=== PATIENT | female | born 1975 ===

== ENCOUNTER 2018-09-04 11:33 | Inpatient (IN) ==
[2018-09-04 12:20] LABS: URINE SOURCE CLEAN CATCH
[2018-09-04 12:30] LABS: BILIRUBIN URINE NEGATIVE (NEGATIVE); BLOOD URINE NEGATIVE (NEGATIVE); COLOR YELLOW; GLUCOSE URINE NEGATIVE (NEGATIVE); KETONE URINE 40 mg/dL (NEGATIVE); LEUKOCYTES URINE NEGATIVE (NEGATIVE); NITRITE URINE NEGATIVE (NEGATIVE); PH URINE 6.5; PROTEIN URINE TRACE mg/dL (NEGATIVE); SP GRAVITY URINE 1.012; TURBIDITY URINE CLEAR (CLEAR); UROBILINOGEN URINE NORMAL (NORMAL)
[2018-09-04 12:31] LABS: UR EPITHELIAL CELLS <10 /HPF (<10); URINE BACTERIA 2+ /HPF; URINE WBC <10 /HPF (<10)
[2018-09-04 13:19] LABS: BASO# 0.02 X1000 (0.0-0.2); BASO% 0.2 % (0.0-0.8); EOS# 0.17 X1000 (0.0-0.7); EOS% 1.5 % (0.0-10.0); HEMATOCRIT 47.6 % (37.0-47.0); HEMOGLOBIN 16.4 g/dL (12.0-16.0); IMM GRAN# 0.08 X1000 (0.0-0.04); IMM GRAN% 0.7 % (0.0-0.5); LYMPH# 2.46 X1000 (1.2-3.4); LYMPH% 22.4 % (20.5-51.1); MCH 29.3 PG (27-31); MCHC 34.5 g/dL (33-37); MCV 85.2 FL (81-99); MONO# 0.93 X1000 (0.11-0.59); MONO% 8.5 % (1.7-9.3); MPV 10.2 FL (7.4-10.4); NEUT# 7.31 X1000 (1.4-6.5); NEUT% 66.7 % (42.2-75.2); PLT 391 X1000 (130-400); RBC 5.59 XMIL (4.2-5.4); RDW 12.9 % (11.5-14.5); WBC 10.97 X1000 (4.8-10.8)
[2018-09-04 13:24] LABS: INR 0.87; PROTIME 12.6 Seconds (11.0-16.0)
--- NOTE | 2018-09-04 13:32 | Diag Imaging Result Doc PS360 ---
FLAT/UPRIGHT ABD/1 VIEW CHEST - 09/04/2018 INDICATION: chest and abd pain TECHNIQUE: COMPARISON: None FINDINGS: The chest is clear. There is a nonobstructive bowel gas pattern. No free air or abnormal calcifications. IMPRESSION: Negative exam. Electronically signed by Spencer Rivera 09/04/2018 1:30 PM
[2018-09-04 13:39] LABS: AGAP 15; ALB/GLOB RATIO 1.2; ALKALINE PHOSPHATASE 63 U/L (32-104); AMYLASE 22 U/L (20-200); BUN 6 mg/dL (8-22); CALCIUM 9.3 mg/dL (8.8-10.2); CHLORIDE 96 mmol/L (98-107); COSMO 269; CREATININE 0.7 mg/dL (0.5-0.9); GLUCOSE 87 mg/dL (70-104); GOT 14 U/L (10-30); GPT 9 U/L (10-36); LIPASE 15 U/L (13-60); MAGNESIUM 1.8 mg/dL (1.5-2.7); POTASSIUM 3.1 mmol/L (3.5-5.1); SODIUM 136 mmol/L (136-145); TCO2 25 mmol/L (25-35); TOTAL BILIRUBIN 0.22 mg/dL (0.20-1.00); TOTAL PROTEIN 7.4 g/dL (6.3-8.3)
[2018-09-04 13:50] LABS: FREE T4 1.76 ng/dL (0.93-1.70)
[2018-09-04 14:05] LABS: HEMOGLOBIN A1C 5.2 % (4.8-6.0)
[2018-09-04] MEDS: NS 1,000 ML IV SCH (15:48)
[2018-09-04] MEDS: DILAUDID IV PRN ×2 (15:48→22:52)
[2018-09-04] MEDS: PROTONIX IV SCH (15:49)
[2018-09-04] MEDS: POTASSIUM CHLORIDE 20 MEQ/SWI 20 MEQ/100 ML IVPB IV SCH ×2 (15:49→22:51)
--- NOTE | 2018-09-04 16:31 | Diag Imaging Result Doc PS360 ---
EXAM: CT ABD/PELVIS W/PO AND IV CON INDICATION: abd pain, r/o IBD TECHNIQUE: This exam was performed using automated exposure control, adjustment of mA or kV according to patient size, and/or use of iterative reconstruction technique. COMPARISON: None. FINDINGS: There is questionable very mild diffuse hepatic steatosis. The gallbladder, spleen, pancreas, adrenal glands, kidneys, and urinary bladder are essentially unremarkable. There is a 1.6 cm left ovarian cyst. The uterus is anteroverted. The reproductive tract is grossly unremarkable as imaged, otherwise. There is no evidence of appendicitis. There is diffuse colonic wall thickening indicating colitis. The diffuse thickening may represent an infectious colitis. However, inflammatory colitis cannot be excluded. Note that the terminal ileum may also be mildly thickened. The remainder of the small bowel is grossly unremarkable. There is no evidence of bowel obstruction. The remainder of the GI tract is grossly unremarkable. No free abdominal gas or free fluid is identified. IMPRESSION: 1.Diffuse colonic wall thickening consistent with nonspecific colitis as detailed above. 2.Questionable mild wall thickening involving the distal ileum. Electronically signed by Dean Miller 09/04/2018 4:29 PM
--- NOTE | 2018-09-04 16:41 | HISTORY AND PHYSICAL ---
PRIMARY CARE PROVIDER: Dr. Samm Michaud. CHIEF COMPLAINT: Abdominal pain and diarrhea. HISTORY OF PRESENT ILLNESS: Mrs. Ross is a 43-year-old female with a history of redundant colon, per her report, gastroesophageal reflux disease, mild hiatal hernia, and interstitial cystitis, who presents directly from Dr. Samm Michaud's office for multiple weeks of abdominal pain. Her symptoms initially started as left lower quadrant pain that was intermittent in nature. She was prescribed a bowel regimen for improved transit, however her symptoms changed from constipation to diarrhea over the past few weeks. She now endorses a right upper quadrant and left lower quadrant pain, having as much as 10 to 15 bowel movements a day with possibly some mild bleeding. Over the past few days she has also had some fevers and chills. She states that in [place], where she is from, she has been worked up before, had multiple colonoscopies and EGDs, none of which showed anything acute, per her report. Dr. Michaud felt she needed an inpatient Gastroenterology workup, so he directly admitted her to our service. We have ordered labs, which show mildly elevated white count, however apparently she was recently put on steroids and antibiotics. She does have some hemoconcentration, but interestingly her sed rate is 125 and a CRP is 40. She does report she has a younger sister with autoimmune disorders, but does not recall anybody else in her family that she knows of. We are currently awaiting a CT of the abdomen and pelvis. She is hemodynamically stable at this time and will admit her for further treatment and evaluation. PAST MEDICAL HISTORY: 1. Redundant colon. 2. Interstitial cystitis. 3. Chronic venous insufficiency of the lower extremities. 4. Gastroesophageal reflux disease. SURGICAL HISTORY: She has had her tonsils taken out. SOCIAL HISTORY: No history of tobacco or drug use. She reports seldom alcohol use. She is . is at the bedside. FAMILY HISTORY: Younger sister with autoimmune disorders, she said diabetes mellitus and alopecia. REVIEW OF SYSTEMS: A 14 point review of systems was obtained and found to be negative with the exception of the HPI. HOME MEDICATIONS: [place] as needed for pain, Proctozone rectally b.i.d., levocetirizine 5 mg daily, magnesium 100 mg p.o. daily, Toprol XL 25 mg daily, Myrbetriq 50 mg daily , nitroglycerin 0.4 mg sublingual as directed, prednisone 10 mg as directed, Carafate 1 gram p.o. b.i.d., triamterene/hydrochlorothiazide one daily, zinc 100 mg p.o. daily. ALLERGIES: Codeine, penicillin, and sulfa. PHYSICAL EXAMINATION: VITAL SIGNS: Blood pressure is 127/100, heart rate 85, respiratory rate 16, and O2 saturation 100% on room air. Temperature is 98.4. GENERAL: This is a well developed, well nourished, female lying in a hospital bed in no acute distress. NEUROLOGIC: Awake, alert, and oriented. Follows commands. No focal deficits. HEENT: The head is atraumatic and normocephalic. Pupils are equal, round, and reactive to light. Oral mucosa is dry. NECK: Trachea is midline. There is no JVD. CHEST: Clear to auscultation bilaterally. CV: Regular rate and rhythm. S1, S2 is noted. There are no murmurs. GI: Right upper quadrant and left lower quadrant tenderness to palpation. No abdominal masses noted. There is no distention or rigidity. Bowel sounds are hypoactive. EXTREMITIES: Without edema. Pulses 2+ bilaterally. DIAGNOSTIC DATA: Abdomen and chest x-ray with nonobstructive bowel gas pattern. Labs: WBC 10.97, hemoglobin 16.4, hematocrit 47.6, platelet count 391,000. INR 0.87. Sodium 136, potassium 3.1, chloride 96, CO2 25, anion gap 15, BUN 6, creatinine 0.7, glucose 87, AST 14, ALT 9. CRP 40. ESR 125. Amylase 22 and lipase 15. TSH 2. UA does show 2+ bacteria with 10-20 RBCs. ASSESSMENT AND PLAN: 1. Abdominal pain with diffuse diarrhea: Concern for inflammatory bowel disease with the elevated inflammatory markers. We will check stool studies and a CT of the abdomen and pelvis. Continue intravenous fluid hydration and consult Gastroenterology. 2. Interstitial cystitis: Will order microbiology of the urine but she is not complaining of any worsening symptoms. She does have some dysuria, but this is chronic, per her report. 3. Hypokalemia: Will replace and recheck in the morning. 4. Gastroesophageal reflux: Will add intravenous Protonix. Gastroenterology has been consulted for that as well. 5. Deep venous thrombosis prophylaxis with sequential compression devices. Further recommendations to follow. Dictated by RENETTA Feldman for Gina Manrique MD cc: RENETTA Feldman MD Kirk L. Jackson, MD I performed a face to face encounter on this patient. I reviewed all imaging and labs on the patient. I agree with the H&P as dictated. The patient was sent as a direct admission due to colitis. On exam, the patient has diffuse abdominal pain. She also has poor skin turgor. The patient will be admitted with a diagnosis of colitis and dehydration. Will start IV antibiotics and IV antibiotics. Will consult GI for further assistance with management. JAM
[2018-09-04] MEDS: LEVAQUIN 750 MG/D5W 750 MG/150 ML IVPB IV SCH (20:38)
[2018-09-04] MEDS: CARAFATE LIQUID PO SCH (20:43)
[2018-09-04] MEDS: FLAGYL 250 MG/NS 250 MG/50 ML IVPB IV SCH (21:45)
[2018-09-04] MEDS: ZOFRAN IV PRN (22:52)
[2018-09-05] MEDS: FLAGYL 250 MG/NS 250 MG/50 ML IVPB IV SCH ×4 (03:32→20:01)
[2018-09-05] MEDS: ZOFRAN IV PRN ×3 (03:54→12:12)
[2018-09-05] MEDS: DILAUDID IV PRN ×5 (03:54→21:15)
--- NOTE | 2018-09-05 05:05 | CONSULTATION ---
DATE OF CONSULTATION: 09/04/2018 REFERRING PHYSICIAN: Dr. Gina Manrique M.D. INDICATION FOR CONSULTATION: 1. Diarrhea. 2. Abdominal pain. HISTORY OF PRESENT ILLNESS: The patient is a 43-year-old white female with a longstanding history of chronic constipation secondary to a redundant colon, GERD, hiatal hernia and interstitial cystitis. The patient states that she has had chronic constipation for years. However, when she was placed on a laxative for severe constipation, she developed unrelenting diarrhea. She has had multiple bowel movements sometimes up to ten to fifteen bowel movements per day with nocturnal awakening. There has been mild bleeding when she wipes post defecation but no gross blood in the stool. Because of her refractory diarrhea that has not responded to conservative management, she was sent to [facility] for admission per her primary care physician, Dr. Samm Michaud. Her labs are remarkable for hypokalemia, hemoconcentration, elevated sed rate to 125 and a CPR of 40. She has a sister who has autoimmune disorders which is of concern to her. At the time of admission, she was sent for a CT scan that is remarkable for diffuse colonic thickening consistent with a nonspecific acute colitis as well as thickening of the distal ileum. The differential includes acute infectious enterocolitis versus inflammatory bowel disease. Because of these findings and her persistent symptoms, we are asked to participate in her care. PAST MEDICAL HISTORY: 1. Redundant colon. 2. Chronic constipation. 3. Interstitial cystitis. 4. Chronic venous insufficiency of the lower extremities. 5. GERD. PAST SURGICAL HISTORY: Tonsillectomy. SOCIAL HISTORY: Negative for tobacco and recreational drug use. She reports social alcohol use. She is and her is at bedside. FAMILY HISTORY: Remarkable in that her sister has autoimmune disorders. They have also a family history of diabetes and alopecia. There is no history of colon cancer. MEDICATION ALLERGIES: 1. Codeine. 2. Penicillin G. 3. Sulfa. 4. Trimethoprim. HOME MEDICATIONS: 1. [place] 10. 2. Hydrocortisone HC one per rectum b.i.d. 3. Xyzal. 4. Magnesium. 5. Toprol. 6. Myrbetriq. 7. Nitroglycerin. 8. Prednisone. 9. Carafate. 10.Triamterene hydrochlorothiazide. 11.Zinc. PHYSICAL EXAM: Her blood pressure is 127/100, pulse of 85, respirations 16, temperature of 98.4. In general, she is in no acute distress. HEENT: Negative for jaundice. Her oropharyngeal mucosal membranes are dry. Pulmonary: On pulmonary exam, lungs are clear to auscultation with normal expiratory effort. Cardiovascular: Exam reveals regular rate and rhythm although she has intermittently had an intermittent tachycardia. Abdomen: Exam reveals normoactive bowel sounds. The abdomen is diffusely tender but the tenderness is greatest in the left lower quadrant and in the right lower quadrant. There is no rebound or guarding. Extremities: Bilaterally are negative for cyanosis, clubbing, or edema. Her pain is approximately 6/10 on a 0 to 10 pain scale. OBJECTIVE DATA: Reveals a hemoglobin of 16.4 with hematocrit of 47.6 and a white count of 10.97. Her platelets are 391,000. PT is 12.6 with an INR of 0.87. Sodium 136, potassium 3.1, chloride 96, CO2 25, BUN 6, creatinine 0.7 with a glucose of 87. Hemoglobin A1c is 5.2, calcium 9.3, magnesium 1.8, total bilirubin 0.22, AST 14, ALT 9, alkaline phosphatase 63, total protein 7.4, albumin 4.0. Her CRP is 40.02. Her amylase is 22, lipase 15, TSH 2.0. She has 10 to 20 red blood cells in her urine with no evidence of leukocytosis. Her urine is negative. IMPRESSION: 1. Enterocolitis as noted above. 2. Abdominal pain. RECOMMENDATION: 1. The patient has severe acute colitis. I will begin Levaquin 750 mg q. 24 hours and Flagyl 250 mg q. 6 hours pending further evaluation and test results. 2. I agree with stool studies that has been sent and are pending. 3. Because her CT scan is suggestive of possible inflammatory bowel disease, I will send stool for lactoferrin and calprotectin. 4. Please check inflammatory bowel disease panel. 5. Will plan an outpatient EGD and colonoscopy in September. 6. Please begin a clear liquid diet and advance as tolerated. 7. Additional recommendations to follow based on clinical course. cc: MD Samm Rojas MD Katherine Takundwa, MD
[2018-09-05 07:00] LABS: BASO# 0.02 X1000 (0.0-0.2); BASO% 0.3 % (0.0-0.8); EOS# 0.26 X1000 (0.0-0.7); EOS% 4.1 % (0.0-10.0); HEMATOCRIT 39.3 % (37.0-47.0); HEMOGLOBIN 13.5 g/dL (12.0-16.0); IMM GRAN# 0.06 X1000 (0.0-0.04); IMM GRAN% 0.9 % (0.0-0.5); LYMPH# 2.02 X1000 (1.2-3.4); LYMPH% 31.9 % (20.5-51.1); MCH 29.6 PG (27-31); MCHC 34.4 g/dL (33-37); MCV 86.2 FL (81-99); MONO# 0.69 X1000 (0.11-0.59); MONO% 10.9 % (1.7-9.3); NEUT# 3.29 X1000 (1.4-6.5); NEUT% 51.9 % (42.2-75.2); PLT 351 X1000 (130-400); RBC 4.56 XMIL (4.2-5.4); WBC 6.34 X1000 (4.8-10.8)
[2018-09-05 07:17] LABS: AGAP 13; BUN 5 mg/dL (8-22); CALCIUM 8.5 mg/dL (8.8-10.2); CHLORIDE 99 mmol/L (98-107); COSMO 266; CREATININE 0.6 mg/dL (0.5-0.9); GLUCOSE 77 mg/dL (70-104); POTASSIUM 3.5 mmol/L (3.5-5.1); SODIUM 135 mmol/L (136-145); TCO2 23 mmol/L (25-35)
[2018-09-05] MEDS: NS 1,000 ML IV SCH ×3 (08:16→19:49)
[2018-09-05] MEDS: TOPROL XL PO SCH (10:07)
[2018-09-05] MEDS: MYRBETRIQ E.R. PO SCH (10:08)
[2018-09-05] MEDS: CARAFATE LIQUID PO SCH ×2 (10:09→20:00)
[2018-09-05] MEDS: VANCOMYCIN ORAL SOLN PO SCH ×3 (10:09→21:20)
[2018-09-05] MEDS ORDERED: SODIUM CHLORIDE 0.9% INJ PRN (12:22)
[2018-09-05] MEDS: SODIUM CHLORIDE 0.9% INJ SCH (14:51)
[2018-09-05] MEDS: PROTONIX IV SCH (14:51)
--- NOTE | 2018-09-05 15:52 | PROGRESS NOTE ---
DATE: 09/05/2018 SUBJECTIVE: The patient complains of nausea and abdominal pain. She was unable to eat her breakfast or lunch. OBJECTIVE: Vital Signs: Temperature 97.9 degrees, blood pressure 114/66, heart rate 75, respirations 21, O2 saturation 100% on room air. General: This is a middle-aged female sitting in bed in no acute distress. Heart: S1, S2 normal. Regular rate and rhythm. Lungs: No wheezing, no rales, no rhonchi. Abdomen: Positive bowel sounds. Soft, nontender, nondistended. Extremities: No edema, no cyanosis. Neurologic: The patient is alert and oriented x3. LABS: Sodium 135, potassium 3.5, chloride 99, CO2 23. BUN 5, creatinine 0.6, calcium 8.5. White blood cell count 6.3, hemoglobin 13, hematocrit 39, platelets 351. ASSESSMENT AND PLAN: 1. Clostridium difficile colitis. We will start the patient on oral vancomycin. 2. Nausea with vomiting. Continue with symptomatic treatment. 3. Gastroesophageal reflux disease. Continue on intravenous Protonix. 4. Deep vein thrombosis prophylaxis. Will start the patient on Lovenox. cc: MD Samm Norris MD
[2018-09-05] MEDS: PHENERGAN IV PRN (16:03)
--- NOTE | 2018-09-05 17:41 | Diag Imaging Result Doc PS360 ---
EXAM: KUB ABDOMEN - 09/05/2018 HISTORY: C. diff, ileocolitis, N/V TECHNIQUE: Portable AP spine abdomen COMPARISON: 09/04/2018 FINDINGS: The bowel gas pattern appears nonspecific. There is residual oral contrast from recent CT scan in the colon and rectum. IMPRESSION: Nonspecific bowel gas pattern. Electronically signed by Akash Lambert 09/05/2018 5:39 PM
[2018-09-05] MEDS: DELZICOL PO SCH (17:59)
[2018-09-05] MEDS: LEVAQUIN 750 MG/D5W 750 MG/150 ML IVPB IV SCH (18:00)
[2018-09-06] MEDS: FLAGYL 250 MG/NS 250 MG/50 ML IVPB IV SCH ×4 (02:12→21:15)
[2018-09-06] MEDS: DILAUDID IV PRN ×3 (02:15→16:52)
[2018-09-06] MEDS: PHENERGAN IV PRN ×4 (02:26→21:15)
[2018-09-06] MEDS: NS 1,000 ML IV SCH ×3 (07:01→16:53)
[2018-09-06] MEDS: VANCOMYCIN ORAL SOLN PO SCH ×4 (07:02→21:15)
[2018-09-06 07:11] LABS: BASO# 0.01 X1000 (0.0-0.2); BASO% 0.1 % (0.0-0.8); EOS# 0.37 X1000 (0.0-0.7); EOS% 4.4 % (0.0-10.0); HEMATOCRIT 37.4 % (37.0-47.0); HEMOGLOBIN 12.7 g/dL (12.0-16.0); IMM GRAN% 1.2 % (0.0-0.5); LYMPH% 13.1 % (20.5-51.1); MCH 29.9 PG (27-31); MONO# 0.65 X1000 (0.11-0.59); MONO% 7.8 % (1.7-9.3); MPV 9.7 FL (7.4-10.4); NEUT# 6.15 X1000 (1.4-6.5); NEUT% 73.4 % (42.2-75.2); PLT 326 X1000 (130-400); RBC 4.25 XMIL (4.2-5.4); RDW 13.3 % (11.5-14.5); WBC 8.38 X1000 (4.8-10.8)
[2018-09-06 07:46] LABS: AGAP 13; BUN 3 mg/dL (8-22); CALCIUM 8.1 mg/dL (8.8-10.2); CHLORIDE 105 mmol/L (98-107); COSMO 273; CREATININE 0.5 mg/dL (0.5-0.9); GLUCOSE 75 mg/dL (70-104); POTASSIUM 3.6 mmol/L (3.5-5.1); SODIUM 139 mmol/L (136-145); TCO2 21 mmol/L (25-35)
[2018-09-06] MEDS: TOPROL XL PO SCH (08:33)
[2018-09-06] MEDS: MYRBETRIQ E.R. PO SCH (08:33)
[2018-09-06] MEDS: DELZICOL PO SCH ×3 (08:33→16:47)
[2018-09-06] MEDS: CARAFATE LIQUID PO SCH ×2 (08:33→21:15)
[2018-09-06] MEDS: LOVENOX SUBQ SCH (08:35)
[2018-09-06] MEDS: PROTONIX IV SCH (15:07)
[2018-09-06] MEDS: SODIUM CHLORIDE 0.9% INJ SCH (15:07)
[2018-09-06] MEDS: LEVAQUIN 750 MG/D5W 750 MG/150 ML IVPB IV SCH (17:02)
--- NOTE | 2018-09-06 18:50 | PROGRESS NOTE ---
DATE: 09/06/2018 SUBJECTIVE: The patient is resting comfortably in bed, no acute events noted overnight. She does complain of persistent nausea and reports that her abdominal pain is a little bit better today. OBJECTIVE: Vital Signs: Temperature 98.2 degrees, blood pressure 99/59, heart rate 90, respirations 20, O2 saturation 98% on room air. General: This is a middle aged female sitting up in bed in no acute distress. Heart: S1, S2 normal. Lungs: Equal air entry bilaterally. No crackles, no rales. Abdomen: Positive bowel sounds. Soft, nontender, nondistended. Extremities: No edema, no cyanosis. Neuro: The patient is alert and oriented x3. LABS: Reviewed. ASSESSMENT AND PLAN: 1. Clostridium difficile colitis. Continue on oral vancomycin. 2. Nausea, vomiting. Continue symptomatic treatment. GI is following. 3. Gastroesophageal reflux disease. Continue on IV Protonix. 4. Deep vein thrombosis prophylaxis. Continue on Lovenox. cc: MD Samm Norris MD
[2018-09-06 19:33] LABS: URINE SOURCE CLEAN CATCH
[2018-09-06 19:39] LABS: BILIRUBIN URINE NEGATIVE (NEGATIVE); BLOOD URINE NEGATIVE (NEGATIVE); COLOR YELLOW; GLUCOSE URINE NEGATIVE (NEGATIVE); KETONE URINE 40 mg/dL (NEGATIVE); LEUKOCYTES URINE TRACE (NEGATIVE); NITRITE URINE NEGATIVE (NEGATIVE); PROTEIN URINE TRACE mg/dL (NEGATIVE); SP GRAVITY URINE 1.015; TURBIDITY URINE CLEAR (CLEAR); UR EPITHELIAL CELLS <10 /HPF (<10); URINE BACTERIA 1+ /HPF; URINE RBC <10 /HPF (<10); URINE WBC <10 /HPF (<10); UROBILINOGEN URINE NORMAL (NORMAL)
[2018-09-06] MEDS: MORPHINE IV PRN (22:14)
[2018-09-07] MEDS: FLAGYL 250 MG/NS 250 MG/50 ML IVPB IV SCH ×4 (03:37→20:31)
[2018-09-07] MEDS: VANCOMYCIN ORAL SOLN PO SCH ×4 (03:38→22:01)
[2018-09-07] MEDS: NS 1,000 ML IV SCH ×2 (05:37→16:49)
[2018-09-07] MEDS: MORPHINE IV PRN ×3 (05:42→22:06)
[2018-09-07 06:46] LABS: BASO# 0.02 X1000 (0.0-0.2); BASO% 0.2 % (0.0-0.8); EOS# 0.34 X1000 (0.0-0.7); HEMATOCRIT 35.3 % (37.0-47.0); HEMOGLOBIN 12.1 g/dL (12.0-16.0); IMM GRAN# 0.08 X1000 (0.0-0.04); IMM GRAN% 0.9 % (0.0-0.5); LYMPH# 1.14 X1000 (1.2-3.4); LYMPH% 13.3 % (20.5-51.1); MCH 29.8 PG (27-31); MCHC 34.3 g/dL (33-37); MCV 86.9 FL (81-99); MONO# 0.62 X1000 (0.11-0.59); MONO% 7.3 % (1.7-9.3); MPV 9.7 FL (7.4-10.4); NEUT# 6.35 X1000 (1.4-6.5); NEUT% 74.3 % (42.2-75.2); PLT 331 X1000 (130-400); RBC 4.06 XMIL (4.2-5.4); RDW 13.4 % (11.5-14.5); WBC 8.55 X1000 (4.8-10.8)
[2018-09-07 07:18] LABS: AGAP 9; BUN 1 mg/dL (8-22); CALCIUM 7.9 mg/dL (8.8-10.2); CHLORIDE 103 mmol/L (98-107); COSMO 269; CREATININE 0.5 mg/dL (0.5-0.9); GLUCOSE 83 mg/dL (70-104); POTASSIUM 3.3 mmol/L (3.5-5.1); SODIUM 137 mmol/L (136-145); TCO2 25 mmol/L (25-35)
[2018-09-07] MEDS ORDERED: KLOR-CON PO ONE (09:00)
[2018-09-07] MEDS: MYRBETRIQ E.R. PO SCH (10:13)
[2018-09-07] MEDS: CARAFATE LIQUID PO SCH ×3 (10:13→20:30)
[2018-09-07] MEDS: DELZICOL PO SCH ×3 (10:14→16:50)
[2018-09-07] MEDS: TOPROL XL PO SCH (10:14)
[2018-09-07] MEDS: LOVENOX SUBQ SCH (10:15)
[2018-09-07] MEDS: ULTRAM PO PRN ×2 (10:53→17:20)
--- NOTE | 2018-09-07 12:40 | PROGRESS NOTE ---
DATE: 09/07/2018 SUBJECTIVE: The patient states that she is feeling a lot better today. She says that her nausea has subsided, as well as her abdominal pain. She wants to try to advance her diet today. OBJECTIVE: Vital Signs: Temperature 97.1 degrees, blood pressure 112/66, heart rate 82, respirations 20, O2 saturation is 100% on room air. General: This is a middle-aged female, lying in bed in no acute distress. Heart: S1, S2 normal. Regular rate and rhythm. Lungs: Clear to auscultation bilaterally. Abdomen: Positive bowel sounds. Soft, nontender, nondistended. Extremities: No edema, no cyanosis. Neurologic: The patient is alert and oriented x3. LABS: Reviewed. ASSESSMENT AND PLAN: 1. Clostridium difficile colitis. Continue on oral vancomycin. 2. Nausea and vomiting. Improved. Will advance the patient to a full liquid diet. 3. Gastroesophageal reflux disease. Continue on intravenous Protonix. 4. Deep vein thrombosis prophylaxis. Continue on Lovenox. cc: MD Samm Norris MD
[2018-09-07] MEDS: CULTURELLE PO SCH ×2 (13:52→20:30)
[2018-09-07] MEDS: PROTONIX IV SCH ×2 (15:19→17:22)
[2018-09-07] MEDS: ZOFRAN IV PRN ×2 (15:20→20:30)
--- NOTE | 2018-09-07 17:10 | PROGRESS NOTE ---
DATE: 09/07/2018 SUBJECTIVE: The patient states that she feels better today. She tolerated a liquid diet at breakfast and lunch. She notes 4 liquid bowel movements over the course of the day. She reports interval resolution of her abdominal pain and states that she feels significantly better. PHYSICAL EXAM: Vital Signs: Her blood pressure is 101/63, pulse 86, respirations 20, temperature of 97.7 degrees. HEENT: Negative. Pulmonary: Lungs are clear to auscultation with normal respiratory effort. Cardiovascular: Reveals regular rate and rhythm with no gallops, murmurs, or rubs. Abdomen: Soft and nontender. Extremities: Negative for cyanosis, clubbing, or edema. OBJECTIVE DATA: Reveals a hemoglobin of 12.1 with hematocrit of 35.3 and a white count of 8.55. She has 331,000 platelets. Sodium is 137, potassium 3.3, chloride 103, CO2 of 25, BUN 1, creatinine 0.5 with a glucose of 83 and calcium of 7.9. Her inflammatory bowel disease is positive for Crohn disease with a positive predictive value of 90%. Her TANISHA is negative. RECOMMENDATION: 1. Her CT scan and IBD panel are consistent with Crohn disease. However, we should confirm the diagnosis. I will schedule the patient for flexible sigmoidoscopy on Sunday. She will need a full EGD and colonoscopy as an outpatient in September. 2. For the C difficile enterocolitis, continue Levaquin and Flagyl. 3. I will add Culturelle 1 p.o. b.i.d. 4. For the nausea with vomiting, continue Protonix and Carafate. However, I will adjust her dose so that they are therapeutic. 5. Continue mesalamine for presumed inflammatory bowel disease. 6. Continue oral vancomycin at this time. 7. Once we are aware of the flexible sigmoidoscopy findings, I will streamline her antibiotic regimen based on our findings. 8. The patient is tolerating a clear liquid diet. I will advance her diet to a GI soft in order to assess how she is able to function on a eating plan that she can continue following hospital discharge. cc: MD Samm Norris MD
[2018-09-07] MEDS: LEVAQUIN 750 MG/D5W 750 MG/150 ML IVPB IV SCH (17:23)
[2018-09-08] MEDS: NS 1,000 ML IV SCH ×2 (03:19→13:57)
[2018-09-08] MEDS: VANCOMYCIN ORAL SOLN PO SCH ×4 (03:20→22:48)
[2018-09-08] MEDS: FLAGYL 250 MG/NS 250 MG/50 ML IVPB IV SCH ×4 (03:20→22:14)
[2018-09-08] MEDS: ULTRAM PO PRN ×4 (03:26→22:14)
[2018-09-08] MEDS: PROTONIX IV SCH ×2 (04:24→16:16)
[2018-09-08 07:22] LABS: BASO# 0.01 X1000 (0.0-0.2); BASO% 0.1 % (0.0-0.8); EOS# 0.37 X1000 (0.0-0.7); EOS% 4.6 % (0.0-10.0); HEMATOCRIT 37.2 % (37.0-47.0); HEMOGLOBIN 12.5 g/dL (12.0-16.0); IMM GRAN# 0.07 X1000 (0.0-0.04); IMM GRAN% 0.9 % (0.0-0.5); LYMPH# 1.81 X1000 (1.2-3.4); LYMPH% 22.4 % (20.5-51.1); MCH 29.4 PG (27-31); MCHC 33.6 g/dL (33-37); MCV 87.5 FL (81-99); MONO% 7.4 % (1.7-9.3); MPV 10.3 FL (7.4-10.4); NEUT# 5.23 X1000 (1.4-6.5); NEUT% 64.6 % (42.2-75.2); PLT 329 X1000 (130-400); RBC 4.25 XMIL (4.2-5.4); RDW 13.8 % (11.5-14.5); WBC 8.09 X1000 (4.8-10.8)
[2018-09-08 07:55] LABS: AGAP 10; ALB/GLOB RATIO 1.3; ALBUMIN 3.2 g/dL (3.5-5.0); ALKALINE PHOSPHATASE 48 U/L (32-104); BUN 1 mg/dL (8-22); CALCIUM 8.5 mg/dL (8.8-10.2); CHLORIDE 105 mmol/L (98-107); COSMO 273; CREATININE 0.6 mg/dL (0.5-0.9); GLUCOSE 91 mg/dL (70-104); GOT 19 U/L (10-30); GPT 14 U/L (10-36); MAGNESIUM 1.4 mg/dL (1.5-2.7); POTASSIUM 3.4 mmol/L (3.5-5.1); SODIUM 139 mmol/L (136-145); TCO2 24 mmol/L (25-35); TOTAL BILIRUBIN 0.27 mg/dL (0.20-1.00); TOTAL PROTEIN 5.6 g/dL (6.3-8.3)
[2018-09-08] MEDS ORDERED: KLOR-CON PO ONE (08:46)
[2018-09-08] MEDS: MYRBETRIQ E.R. PO SCH (09:49)
[2018-09-08] MEDS: CARAFATE LIQUID PO SCH ×4 (09:49→20:47)
[2018-09-08] MEDS: TOPROL XL PO SCH (09:50)
[2018-09-08] MEDS: CULTURELLE PO SCH ×2 (09:50→20:48)
[2018-09-08] MEDS: DELZICOL PO SCH ×3 (09:50→16:17)
[2018-09-08] MEDS: LOVENOX SUBQ SCH (09:50)
[2018-09-08] MEDS: LEVAQUIN 750 MG/D5W 750 MG/150 ML IVPB IV SCH (18:11)
--- NOTE | 2018-09-08 19:52 | PROGRESS NOTE ---
DATE: 09/08/2018 SUBJECTIVE: The patient states that she is feeling a little bit better. However, she has been having diarrhea. OBJECTIVE: Vital Signs: Temperature 98 degrees, blood pressure 111/67, heart rate 66, respirations 20, O2 saturation 98% on room air. General: This is a middle-aged female lying in bed in no acute distress. Heart: S1, S2 normal. Regular rate and rhythm. Lungs: Clear to auscultation bilaterally. Abdomen: Positive bowel sounds. Soft. Diffuse tenderness. Extremities: No edema, no cyanosis. Neurologic: The patient is alert and oriented x3. LABS: Reviewed. ASSESSMENT AND PLAN: 1. Clostridium difficile colitis. Continue on oral vancomycin. 2. Possible Crohn's disease. The patient is scheduled to undergo a sigmoidoscopy tomorrow. 3. Hypokalemia. Will replace the patient's potassium. 4. Hypomagnesemia. Will replace the patient's magnesium. 5. Gastrointestinal prophylaxis. Continue on IV Protonix. 6. Deep vein thrombosis prophylaxis. Continue with SCDs. cc: MD Samm Norris MD
[2018-09-08] MEDS ORDERED: MAGNESIUM SULFATE 2 GM/S.W.I. 2 GM/50 ML IVPB IV ONE (20:00)
--- NOTE | 2018-09-08 21:11 | PROGRESS NOTE ---
DATE: 09/08/2018 SUBJECTIVE: The patient is feeling better. However, she reports increased stool frequency in the last 48 hours. She denies abdominal pain but has some mild nausea. She denies emesis. EXAM: Her blood pressure is 111/67, pulse 66, respirations 20, temperature of 98.0 degrees. Her pain is a 5/10 at the time of the exam. The remainder of the exam was deferred as she was eating her meal. OBJECTIVE DATA: Reveals a hemoglobin of 12.5 with hematocrit of 37.2 and a white count of 8.09. She has 329,000 platelets. Sodium is 139, potassium 3.4, chloride 105, CO2 24, BUN 1, creatinine 0.6 with a glucose of 91. Calcium is 8.5, magnesium 1.4, total bilirubin 0.27, AST 19, ALT 14, alkaline phosphatase 48, CRP 4.60, total protein 5.6 and albumin 3.2. RECOMMENDATION: 1. The patient's stool studies were consistent with C difficile colitis, which is currently being treated. Her inflammatory bowel disease marker suggests Crohn's disease. Her inflammatory markers have improved considerably, but her stool frequency is increased. Therefore, I will plan to perform a flexible sigmoidoscopy in the morning to obtain tissue to confirm the diagnosis. 2. Continue supportive care. 3. I will defer to the primary team for correction of her fluid and electrolytes. cc: MD Samm Rojas MD Katherine Takundwa, MD
[2018-09-09] MEDS: FLAGYL 250 MG/NS 250 MG/50 ML IVPB IV SCH ×4 (04:13→21:29)
[2018-09-09] MEDS: VANCOMYCIN ORAL SOLN PO SCH ×4 (04:15→23:30)
[2018-09-09] MEDS: PROTONIX IV SCH ×2 (04:15→17:20)
[2018-09-09] MEDS: SODIUM CHLORIDE 0.9% INJ SCH (04:15)
[2018-09-09] MEDS: ULTRAM PO PRN ×4 (04:15→23:30)
[2018-09-09] MEDS ORDERED: FLEET ENEMA PR ONE ×2 (04:30→05:30)
[2018-09-09] MEDS: ZOFRAN IV PRN (04:50)
[2018-09-09] MEDS: MORPHINE IV PRN (04:50)
[2018-09-09 07:33] LABS: MAGNESIUM 1.7 mg/dL (1.5-2.7); PHOSPHORUS 2.9 mg/dL (2.7-4.5)
[2018-09-09] MEDS ORDERED: XYLOCAINE-MPF 2% ONE (08:36)
[2018-09-09] MEDS ORDERED: DIPRIVAN 1% ONE ×2 (08:36→08:53)
[2018-09-09 09:02] LABS: HEPATITIS PROFILE ACUTE SEE COMMENTS
--- NOTE | 2018-09-09 09:40 | OPERATIVE NOTE ---
PROCEDURE DATE: 09/09/2018 PRIMARY HOSPITALIST: Daljit Flowers MD. PRIMARY CARE PHYSICIAN: Samm Michaud MD. INDICATION FOR PROCEDURE: 1. Refractory diarrhea. 2. Clostridium difficile. 3. Ileal colitis on CT scan. 4. Inflammatory bowel disease serology consistent with Crohn disease. PROCEDURE PERFORMED: 1. Extended flexible sigmoidoscopy to the hepatic flexure. 2. Flexible sigmoidoscopy with biopsies. CONSENT: Informed consent was obtained from the patient prior to the procedure. The risks, benefits, and alternatives were discussed with the patient and her . MEDICATION: The patient received monitored anesthesia care. PERFORMING PHYSICIAN: Melisa Bullock MD. ASSISTANTS: 1. [facility] 2. Teresa Arango RN. 3. Kobe Harrington CRNA. 4. Marshal Barker MD (Anesthesia). COMPLICATIONS: There were no complications. ESTIMATED BLOOD LOSS: Less than 1 mL. SPECIMEN REMOVED: 1. Random colon biopsy. 2. Rectal biopsy. FINDINGS: After the sedation was achieved, the upper endoscope was inserted to the hepatic flexure. We were able to visualize the ascending colon as well as the transverse, descending, and sigmoid colon. There was diffuse erythema with superficial erosions consistent with acute pancolitis. Multiple random colon biopsies were taken. In the rectum, there was ulceration consistent with acute proctitis. Biopsies were taken from the rectal mucosa. The rectum was otherwise normal. After the exam was complete, the lumen was decompressed, and the scope was removed without incident. IMPRESSION: Pancolitis consistent with Crohn disease. RECOMMENDATION: 1. Await biopsy results. 2. Continue Levaquin and Flagyl for total of 10 days of antibiotic therapy. 3. Continue mesalamine 800 mg 3 times a day. 4. I will add Solu-Medrol 40 mg IV q.12 hours for 24 hours, then 40 mg IV daily. Once the diarrhea is under better control, I would transition to oral prednisone and taper slowly as an outpatient. 5. Continue Protonix and Carafate. She will need a total of 12 weeks of Carafate and then stop. 6. I will schedule an outpatient colonoscopy after her colitis resolves for a full evaluation of her entire colon and terminal ileum. 7. Continue Culturelle probiotics. 8. Will have the patient return to clinic 1 to 2 weeks after hospital discharge. cc: MD Samm Rojas MD Cesar Garcia-Rodriguez, MD Kirk L. Jackson, MD
[2018-09-09] MEDS: CARAFATE LIQUID PO SCH ×4 (10:38→21:29)
[2018-09-09] MEDS: CULTURELLE PO SCH ×2 (10:38→21:29)
[2018-09-09] MEDS: SOLU-MEDROL IV SCH ×2 (10:39→21:29)
[2018-09-09] MEDS: PHENERGAN IV PRN (10:39)
[2018-09-09] MEDS: TOPROL XL PO SCH (10:39)
[2018-09-09] MEDS: DELZICOL PO SCH ×3 (10:40→17:20)
[2018-09-09] MEDS: MYRBETRIQ E.R. PO SCH (11:51)
[2018-09-09] MEDS: NS 1,000 ML IV SCH (13:17)
--- NOTE | 2018-09-09 15:38 | PROGRESS NOTE ---
DATE: 09/09/2018 SUBJECTIVE: The patient reports feeling fine. Reports not feeling nauseated. Of course, not vomiting, and she has had 2 episodes of diarrhea. OBJECTIVE: Vital Signs: Temperature 98.0, heart rate 79, respiratory rate 18, blood pressure 101/59, oxygen saturation 98% on room air. General: This is a 43-year-old female lying in bed, in no acute distress. Cardiovascular: S1, S2 heard. No murmurs, gallops, or rubs. Regular rate and rhythm. Respiratory: Clear bilaterally to auscultation. No work of breathing or using accessory muscles. Abdomen: Soft, nontender to palpation. Bowel sounds present. No organomegaly. Extremities: No clubbing, cyanosis, or edema. Peripheral pulses present in both legs. Neurological: Patient is alert and oriented x3. Moves 4 extremities. LABORATORY DATA: No labs from today except phosphorus 2.9 and magnesium 1.7. ASSESSMENT AND PLAN: 1. Clostridium difficile colitis. Patient is on oral vancomycin. According to her, she had only 2 bowel movement this morning. We are not of course sure that was because of the prep enema that she has received. In any case, she underwent sigmoidoscopy, and the biopsies are still pending. As per GI recommendation, IV steroids has been started. We will continue with those. At this point, the patient is feeling much better than she was feeling before the procedure, so my plan is to check labs tomorrow and check how many episodes of diarrhea she has had. If the diarrhea is gone or almost gone, and labs are okay, I will send her home with a Medrol Dosepak, and also oral vancomycin to complete 14 days of antibiotics. 2. Hypokalemia. Potassium has not been checked today. We will check it tomorrow. 3. Hypomagnesemia, resolved. 4. Gastrointestinal prophylaxis. We will continue with IV Protonix. 5. Deep vein thrombosis prophylaxis. We will continue with sequential compression devices. cc: MD Samm Corbett MD
[2018-09-09] MEDS: DIFLUCAN PO SCH (17:19)
[2018-09-09] MEDS: LEVAQUIN 750 MG/D5W 750 MG/150 ML IVPB IV SCH (17:21)
[2018-09-10] MEDS: FLAGYL 250 MG/NS 250 MG/50 ML IVPB IV SCH ×2 (03:00→09:50)
[2018-09-10] MEDS: VANCOMYCIN ORAL SOLN PO SCH ×2 (03:57→09:52)
[2018-09-10 04:56] VITALS: BP 129/63
[2018-09-10] MEDS: PROTONIX IV SCH (06:33)
[2018-09-10 07:08] LABS: BASO# 0.01 X1000 (0.0-0.2); BASO% 0.1 % (0.0-0.8); HEMATOCRIT 36.1 % (37.0-47.0); HEMOGLOBIN 12.3 g/dL (12.0-16.0); IMM GRAN# 0.05 X1000 (0.0-0.04); IMM GRAN% 0.3 % (0.0-0.5); LYMPH# 1.06 X1000 (1.2-3.4); LYMPH% 7.1 % (20.5-51.1); MCH 29.6 PG (27-31); MCHC 34.1 g/dL (33-37); MONO# 0.26 X1000 (0.11-0.59); MONO% 1.7 % (1.7-9.3); MPV 10.2 FL (7.4-10.4); NEUT# 13.65 X1000 (1.4-6.5); NEUT% 90.8 % (42.2-75.2); PLT 377 X1000 (130-400); RBC 4.15 XMIL (4.2-5.4); RDW 13.8 % (11.5-14.5); WBC 15.03 X1000 (4.8-10.8)
[2018-09-10 07:31] LABS: LYMPHS 4 % (21-51); SEGS 96 % (42-75)
[2018-09-10 07:35] LABS: AGAP 9; BUN 5 mg/dL (8-22); CALCIUM 8.6 mg/dL (8.8-10.2); CHLORIDE 104 mmol/L (98-107); COSMO 280; CREATININE 0.4 mg/dL (0.5-0.9); GLUCOSE 163 mg/dL (70-104); POTASSIUM 4.8 mmol/L (3.5-5.1); SODIUM 140 mmol/L (136-145); TCO2 27 mmol/L (25-35)
[2018-09-10] MEDS: SOLU-MEDROL IV SCH (09:51)
[2018-09-10] MEDS: MYRBETRIQ E.R. PO SCH (09:51)
[2018-09-10] MEDS: CARAFATE LIQUID PO SCH ×2 (09:51→14:52)
[2018-09-10] MEDS: CULTURELLE PO SCH (09:51)
[2018-09-10] MEDS: DIFLUCAN PO SCH (09:51)
[2018-09-10] MEDS: TOPROL XL PO SCH (09:52)
[2018-09-10] MEDS: DELZICOL PO SCH ×2 (09:52→14:52)
--- NOTE | 2018-09-12 19:55 | DISCHARGE SUMMARY ---
ADMISSION DATE: 09/04/2018 DISCHARGE DATE: 09/10/2018 DISCHARGE DIAGNOSES: 1. Clostridium difficile colitis. Improved. 2. Suspected Crohn disease. 3. Hypokalemia, resolved. 4. Hypomagnesemia, resolved. CONSULTATION: Dr. Melisa Bullock from GI. PROCEDURES: 1. Abdominal x-ray done on admission showed negative exam. 2. Abdomen and pelvis CT showed diffuse colonic wall thickening consistent with nonspecific colitis and the questionable of mild wall thickening involving the distal ileum. 3. Extended flexible sigmoidoscopy with biopsy performed by Dr. Bullock showed pancolitis consistent with Crohn disease. HOSPITAL COURSE: This is a 43-year-old female with history of redundant colon and mild hiatal hernia and interstitial cystitis who presented directly from Dr. Bullock's [place] office for multiple weeks of abdominal pain and diarrhea. The pain was located in the left lower quadrant. She was admitted to the hospital. Workup done as above. Dr. Bullock was consulted and she decided to perform sigmoidoscopy sorry with result as above. She was initially treated with IV antibiotics, in this case Levaquin and Flagyl, and also she was found out to have C difficile colitis. She was started also on vancomycin oral. At the time of discharge, diarrhea is almost gone. No abdominal pain and also the findings of the colonoscopy were barely suggestive for Crohn disease. So, at discharge patient is going to be given Medrol Dosepak. The patient is feeling fine, tolerating oral medications, so at this time the patient is going to be discharged in stable condition. She is going to be seen by Dr. Bullock in the office in 1 to 2 weeks. DISCHARGE PHYSICAL EXAMINATION: Vital Signs: Temperature 98.3, heart rate 80, respiratory rate 18, blood pressure 129/63, O2 sat 99% on room air. General: This is a 43-year-old female lying in bed in no acute distress. HEENT: Head is normocephalic, atraumatic. Neck: No JVD noted. No carotid bruits. No lymphadenopathy. No thyromegaly. Cardiovascular: S1, S2 heard. No murmurs, gallops or rubs. Regular rate and rhythm. Respiratory: Exam clear bilaterally to auscultation. No work of breathing or using accessory muscles. Abdomen: Soft, nontender to palpation. Bowel sounds present. No organomegaly. Extremities: No clubbing, cyanosis or edema. Peripheral pulses present in both legs. Neurologic: Patient alert oriented x 3. Moves 4 extremities. DISCHARGE DISPOSITION: Home to self-care. MEDICATIONS: 1. Levofloxacin 750 mg 1 tablet p.o. daily for a week. 2. Mesalamine. 3. Medrol Dosepak as directed. 4. Metronidazole 500 mg p.o. 3 times per day for a week. 5. Culturelle 1 tablet p.o. b.i.d. 6. Vancomycin oral 1 tablet every 6 hours for 7 days. 7. Mirabegron 50 mg p.o. daily. 8. Hydrocortisone rectally twice daily. 9. Levocetirizine 5 mg p.o. daily. 10. Metoprolol 25 mg 1 tablet p.o. daily. 11. Carafate 1 tablet p.o. twice daily. FOLLOWUP: Follow up with Dr. Bullock in 1 to 2 weeks. cc: Daljit Flowers MD
--- NOTE | 2018-09-15 22:49 | PROGRESS NOTE ---
DATE: 09/05/2019 SUBJECTIVE: The patient states that she continues to have nausea with vomiting as well as diarrhea. She states that she continues to feel poorly. She denies fever. EXAM: Her blood pressure is 114/66, pulse 75, respirations 21, temperature of 97.7 degrees.HEENT: Remarkable in that she has no jaundice. However, oropharyngeal mucosal membranes are dry. Pulmonary: Lungs are clear to auscultation with normal respiratory effort. Cardiovascular: Reveals regular rate and rhythm with no murmurs, gallops, or rubs. Her abdomen is soft but diffusely tender. OBJECTIVE DATA: Reveals a hemoglobin of 13.5 with hematocrit 39.3 and a white count of 6.37. She has 351,000 platelets. Sodium is 135, potassium 3.5, chloride 99, CO2 23, BUN 5, creatinine 0.6 with a glucose of 77. Calcium is 8.5. Her stool studies are negative for C difficile colitis. However, she had many white blood cells on fecal white blood cell count. RECOMMENDATION: 1. Patient had acute colitis. I will begin mesalamine as an anti-inflammatory. 2. Because of the nausea with vomiting overnight, I will check a KUB to assess for obstruction. 3. Because of her gastroesophageal reflux disease, I will continue Protonix. 4. Additional recommendation INCOMPLETE REPORT -- DICTATION ENDS HERE. cc: Melisa Bullock MD
== END 2018-09-10 15:55 | disposition home or self-care (01) | DRG 372 ==
LOC: SUATTDRO 11:33 → DIRADM 11:33 → 4N 11:42 → 3N 09-05 10:23
PROVIDERS: ATTEND Internal Medicine
CPT/HCPCS: 74000; 74018; 74022; 74177; 80048; 80053; 80074; 81001; 81025; 82150; 82272; 83036; 83520; 83630; 83690; 83735; 83993; 84100; 84439; 84443; 85025; 85027; 85610; 85651; 86038; 86039; 86140; 86255; 86480; 86671; 87045; 87046; 87088; 87177; 87205; 87324; 87449; 88305; 88313; 89055; A9270; C9113; J1170; J1650; J1956; J2270; J2405; J2550; J2920; J3475; J3480; J7030; Q9967; S0030; S0164